=== PATIENT | female | born 1985 | race Caucasian/White ===

== ENCOUNTER 2016-12-19 17:58 | Emergency (ER) | payer BC ==
[~2016-12-19] VITALS: Ht 157.5 cm; Wt 67.9 kg
[~2016-12-19 17:58] MED LIST: ENDOCET 5-3251 EACH PO; IBUPROFEN800 MG PO; PRENATAL TABLE1 EAC3 PO
[2016-12-19] MEDS ORDERED: ZOLOFT50 MG PO (18:10)
[2016-12-19 18:33] VITALS: BP 127/88
== END 2016-12-19 18:43 | disposition home or self-care (01) ==
LOC: EME 17:58
DX: R51 Headache (principal)
CPT/HCPCS: 99281; 99284; J1885